=== PATIENT | male | born 1975 | race Caucasian/White ===

== ENCOUNTER 2019-08-19 08:03 | Outpatient (RCR) | payer OTHER | END 2019-11-17 | disposition home or self-care (01) | LOC: LAB 08:03 | PROVIDERS: ATTEND Nurse Practitioner Family | DX: Z51.81 Encounter for therapeutic drug level monitoring (principal); E03.9 Hypothyroidism, unspecified; E27.1 Primary adrenocortical insufficiency; R10.13 Epigastric pain; Z79.52 Long term (current) use of systemic steroids | CPT/HCPCS: 36415; 82533 ==